=== PATIENT | female | born 1990 | race Caucasian/White ===

== ENCOUNTER 2023-02-14 19:05 | Outpatient (CLI) | payer OTHER | END 2023-02-14 21:40 | disposition home or self-care (01) | LOC: MUS 19:05 | PROVIDERS: ATTEND Family Medicine | DX: N92.6 Irregular menstruation, unspecified (principal); L83 Acanthosis nigricans; Z68.45 Body mass index [BMI] 70 or greater, adult; N88.8 Other specified noninflammatory disorders of cervix uteri | CPT/HCPCS: 76830; Q0092 ==

== ENCOUNTER 2024-04-22 08:25 | Outpatient (CLI) | payer OTHER ==
[2024-04-22 09:42] LABS: ALBUMIN 3.6 g/dL (3.4-5.0); ANION GAP 12.1 (8-16); CARBON DIOXIDE 29.8 mmol/L (21-32); CREATININE 0.9 mg/dL (0.6-1.3); POTASSIUM 4.9 mmol/L (3.5-5.1); THYROID STIMULATING HORMONE 3.75 uIU/mL (0.34-3.74); TOTAL BILIRUBIN 0.4 mg/dL (0.0-1.0); TOTAL PROTEIN, SERUM 7.7 g/dL (6.4-8.2)
[2024-04-23 08:09] LABS: HEMOGLOBIN A1C 5.6 % (4.8-5.6); T4 FREE (DIRECT) 1.19 ng/dL (0.82-1.77)
[2024-04-23 09:59] LABS: INSULIN, RANDOM 32.7 uIU/mL (2.6 - 24.9)
== END 2024-04-22 19:56 | disposition home or self-care (01) ==
LOC: MLB 08:25
PROVIDERS: ATTEND Internal Medicine
DX: E66.9 Obesity, unspecified (principal)
CPT/HCPCS: 36415; 80053; 83036; 83525; 84439; 84443